=== PATIENT | male | born 1970 | race African-American/Black ===

== ENCOUNTER 2017-05-06 18:50 | Emergency (ER) | payer BC, MEDICARE ==
[~2017-05-06] VITALS: Wt 77.1 kg
[~2017-05-06 18:50] MED LIST: ACULAR 0.5%3 ML OPH; ANUSOL-HC25 MG RC; B121000 MCG/1 IM; MOTRIN800 MG PO; NKHM; TOBREX OPHTH S2.5 ML OPH; VANCOMYCIN HCL250 MG PO
[2017-05-06 19:08] VITALS: BP 143/86
[2017-05-06 19:58] LABS: BASO % 0.7 % (0.0-1.0); EOS # 0.1 10*3/uL (0.0-0.4); EOS % 2.4 % (1.0-4.0); HEMATOCRIT 38.1 % (42.0-52.0); HEMOGLOBIN 12.3 g/dl (14.0-18.0); LYMPH # 1.6 10*3/uL (1.3-4.4); LYMPH % 36.4 % (27.0-41.0); MEAN CELL VOLUME 85.2 fl (80.0-94.0); MEAN CORPUSCULAR HGB 27.5 pg (27.0-31.0); MEAN CORPUSCULAR HGB CONC 32.3 g/dl (33.0-37.0); MEAN PLATELET VOLUME 9.9 fl (9.6-12.3); MONO # 0.3 10*3/uL (0.1-1.0); MONO % 7.6 % (3.0-9.0); NEUT # 2.4 10*3/uL (2.3-7.9); NEUT % 52.2 % (47.0-73.0); PLATELET COUNT AUTOMATED 166 10*3/uL (130-400); RED BLOOD COUNT 4.47 10*6/uL (4.50-5.90); RED CELL DISTRI WIDTH 12.6 % (0-14.5); WHITE BLOOD COUNT 4.5 10*3/uL (4.8-10.8)
[2017-05-06 20:14] LABS: ACT PARTIAL THROMBO TIME 22.9 SECONDS (20.8-31.5); ALBUMIN 3.4 gm/dl (3.1-4.5); ALKALINE PHOSPHATASE 61 U/L (45-117); BUN 8 mg/dl (7-24); CHLORIDE 104 mmol/L (98-107); CREATININE 0.82 mg/dL (0.70-1.30); POTASSIUM 3.8 mmol/L (3.5-5.1); SGOT/AST 17 IU/L (3-35); SGPT/ALT 14 U/L (12-78); SODIUM 141 mmol/L (136-145); TOTAL PROTEIN 6.9 gm/dL (6.4-8.2)
[2017-05-06 20:15] LABS: TROPONIN I < 0.015 ng/ml (<0.045)
== END 2017-05-06 21:56 | disposition home or self-care (01) ==
LOC: ED 18:50
PROVIDERS: Student in an Organized Health Care Education/Training Program
DX: K64.9 Unspecified hemorrhoids (principal); E78.5 Hyperlipidemia, unspecified

== ENCOUNTER → 2017-06-05 | Outpatient (CLI) | payer BC, MEDICARE | END | disposition home or self-care (01) | LOC: RESCLI 02:22 | DX: Z12.11 Encounter for screening for malignant neoplasm of colon (principal); H61.22 Impacted cerumen, left ear; R53.83 Other fatigue; F79 Unspecified intellectual disabilities; M62.81 Muscle weakness (generalized) ==

== ENCOUNTER → 2020-04-18 | Outpatient (CLI) | payer OTHER ==
[2020-04-18 12:51] LABS: THYROXINE (T4) TOTAL 10.6 ug/dl (4.5-12.1)
[2020-04-18 12:56] LABS: THYROID STIM HORMONE (HS) 1.53 uIU/ml (0.358-4.75)
[2020-04-18 13:24] LABS: VITAMIN D, 25-HYDROXY 24.7 ng/mL (30-100)
== END | disposition home or self-care (01) ==
LOC: LAB 11:52
PROVIDERS: ATTEND Family Medicine
DX: E78.00 Pure hypercholesterolemia, unspecified (principal); R53.83 Other fatigue; R25.1 Tremor, unspecified; E55.9 Vitamin D deficiency, unspecified

== ENCOUNTER 2020-05-29 11:59 | Emergency (ER) | payer OTHER ==
[~2020-05-29] VITALS: Wt 72.6 kg
[2020-05-29 12:06] VITALS: BP 141/60
[2020-05-29] MEDS ORDERED: DEBROX15 ML OT (13:55)
== END 2020-05-29 14:30 | disposition home or self-care (01) ==
LOC: ED 11:59
DX: S93.401A Sprain of unspecified ligament of right ankle, initial encounter (principal); H61.23 Impacted cerumen, bilateral; E78.5 Hyperlipidemia, unspecified; Z98.890 Other specified postprocedural states; W00.2XXA Other fall from one level to another due to ice and snow, initial encounter; Y93.89 Activity, other specified; Y92.89 Other specified places as the place of occurrence of the external cause; Y99.8 Other external cause status

== ENCOUNTER → 2020-06-15 | Outpatient (CLI) | payer OTHER ==
[~2020-06-15] MED LIST changes: +DEBROX15 ML OT
== END | disposition home or self-care (01) ==
LOC: MRI 06-10 13:00 → LAB 10:11
PROVIDERS: ATTEND Family Medicine
DX: S99.911A Unspecified injury of right ankle, initial encounter (principal); M25.571 Pain in right ankle and joints of right foot; X58.XXXA Exposure to other specified factors, initial encounter; Y93.89 Activity, other specified; Y92.89 Other specified places as the place of occurrence of the external cause; Y99.8 Other external cause status

== ENCOUNTER 2020-10-07 00:32 | Emergency (ER) | payer OTHER ==
[~2020-10-07] VITALS: Ht 152.4 cm; Wt 72.6 kg
[~2020-10-07 00:32] MED LIST changes: -ZOFRAN4 MG PO
[2020-10-07 00:43] VITALS: BP 113/76
[2020-10-07 01:07] LABS: BASO % 0.5 % (0.0-1.0); EOS % 0.6 % (1.0-4.0); HEMATOCRIT 42.4 % (42.0-52.0); LYMPH # 1.3 10*3/uL (1.3-4.4); LYMPH % 19.4 % (27.0-41.0); MEAN CORPUSCULAR HGB CONC 31.8 g/dl (33.0-37.0); MEAN PLATELET VOLUME 11.5 fl (9.6-12.3); MONO # 0.5 10*3/uL (0.1-1.0); MONO % 7.2 % (3.0-9.0); NEUT # 4.7 10*3/uL (2.3-7.9); NEUT % 72.1 % (47.0-73.0); PLATELET COUNT AUTOMATED 125 10*3/uL (130-400); RED BLOOD COUNT 4.82 10*6/uL (4.50-5.90); RED CELL DISTRI WIDTH 12.7 % (0-14.5); WHITE BLOOD COUNT 6.6 10*3/uL (4.8-10.8)
[2020-10-07 01:21] LABS: LIPASE 75 U/L (73-393)
[2020-10-07 01:24] LABS: ALBUMIN 3.7 gm/dl (3.1-4.5); ALKALINE PHOSPHATASE 55 U/L (45-117); BUN 12 mg/dl (7-24); CHLORIDE 109 mmol/L (98-107); CREATININE 0.84 mg/dL (0.70-1.30); POTASSIUM 3.5 mmol/L (3.5-5.1); SGOT/AST 11 IU/L (3-35); SGPT/ALT 8 U/L (12-78); SODIUM 137 mmol/L (136-145); TOTAL PROTEIN 6.9 gm/dL (6.4-8.2)
[2020-10-07] MEDS ORDERED: ZOFRAN4 MG PO (03:22)
== END 2020-10-07 04:16 | disposition home or self-care (01) ==
LOC: ED 00:32
PROVIDERS: Internal Medicine
DX: K52.9 Noninfective gastroenteritis and colitis, unspecified (principal); R11.2 Nausea with vomiting, unspecified; Z79.899 Other long term (current) drug therapy; Z98.890 Other specified postprocedural states

== ENCOUNTER → 2020-10-07 | Emergency (ER) | payer OTHER ==
[~2020-10-07] VITALS: Ht 165.1 cm; Wt 72.6 kg
[~2020-10-07] MED LIST changes: +ZOFRAN4 MG PO
[2020-10-07 00:21] VITALS: BP 113/76
== END ==
LOC: ED
DX: R11.2 Nausea with vomiting, unspecified (principal)

== ENCOUNTER 2020-12-02 13:57 | Emergency (ER) | payer OTHER ==
[~2020-12-02] VITALS: Ht 162.5 cm; Wt 68.0 kg
[~2020-12-02 13:57] MED LIST changes: +ZOFRAN4 MG PO
[2020-12-02 14:12] VITALS: BP 122/68
== END 2020-12-02 17:31 | disposition home or self-care (01) ==
LOC: ED 13:57
DX: U07.1 COVID-19 (principal)

== ENCOUNTER 2020-12-03 13:57 | Emergency (ER) | payer OTHER ==
[~2020-12-03] VITALS: Ht 162.5 cm; Wt 72.6 kg
[2020-12-03 14:58] LABS: HEMATOCRIT 42.6 % (42.0-52.0); MEAN CELL VOLUME 86.1 fl (80.0-94.0); MEAN CORPUSCULAR HGB 27.7 pg (27.0-31.0); MEAN CORPUSCULAR HGB CONC 32.2 g/dl (33.0-37.0); MEAN PLATELET VOLUME 11.6 fl (9.6-12.3); PLATELET COUNT AUTOMATED 92 10*3/uL (130-400); RED BLOOD COUNT 4.95 10*6/uL (4.50-5.90); RED CELL DISTRI WIDTH 12.5 % (0-14.5); WHITE BLOOD COUNT 2.1 10*3/uL (4.8-10.8)
[2020-12-03 15:08] LABS: BUN 10 mg/dl (7-24); CHLORIDE 106 mmol/L (98-107); CREATININE 0.75 mg/dL (0.70-1.30); POTASSIUM 4.1 mmol/L (3.5-5.1); SODIUM 137 mmol/L (136-145)
[2020-12-03 15:11] LABS: CPK 101 U/L (39-308)
[2020-12-03 15:20] LABS: TOTAL CELLS COUNTED 50 #CELLS
[2020-12-03 15:21] LABS: BURR CELLS MODERATE; PLATELET SUFFICIENCY LOW (NORMAL)
== END 2020-12-03 16:16 | disposition home or self-care (01) ==
LOC: ED 13:57
PROVIDERS: Emergency Medicine
DX: U07.1 COVID-19 (principal); J12.82 Pneumonia due to coronavirus disease 2019

== ENCOUNTER 2020-12-13 11:54 | Emergency (ER) | payer OTHER ==
[~2020-12-13] VITALS: Wt 68.0 kg
[2020-12-13 12:00] VITALS: BP 128/70
== END 2020-12-13 15:44 | disposition left against medical advice (07) ==
LOC: ED 11:54
DX: R05 Cough (principal); Z53.21 Procedure and treatment not carried out due to patient leaving prior to being seen by health care provider

== ENCOUNTER → 2020-12-28 | Outpatient (CLI) | payer OTHER ==
[2020-12-28 09:33] LABS: HEMATOCRIT 38.3 % (42.0-52.0); MEAN CELL VOLUME 86.8 fl (80.0-94.0); MEAN CORPUSCULAR HGB 27.7 pg (27.0-31.0); MEAN CORPUSCULAR HGB CONC 31.9 g/dl (33.0-37.0); MEAN PLATELET VOLUME 10.2 fl (9.6-12.3); RED BLOOD COUNT 4.41 10*6/uL (4.50-5.90); RED CELL DISTRI WIDTH 13.1 % (0-14.5); WHITE BLOOD COUNT 3.7 10*3/uL (4.8-10.8)
[2020-12-28 09:51] LABS: BUN 7 mg/dl (7-24); CHLORIDE 107 mmol/L (98-107); POTASSIUM 4.1 mmol/L (3.5-5.1); SODIUM 139 mmol/L (136-145)
[2020-12-28 09:54] LABS: ALKALINE PHOSPHATASE 65 U/L (45-117); CREATININE 0.79 mg/dL (0.70-1.30); SGOT/AST 11 IU/L (3-35); SGPT/ALT 9 U/L (12-78); TOTAL PROTEIN 6.6 gm/dL (6.4-8.2)
== END | disposition home or self-care (01) ==
LOC: LAB 09:09
PROVIDERS: ATTEND Family Medicine
DX: U07.1 COVID-19 (principal); J18.9 Pneumonia, unspecified organism; R53.83 Other fatigue; R05 Cough

== ENCOUNTER → 2021-03-09 | Outpatient (CLI) | payer OTHER | END | disposition home or self-care (01) | LOC: US 02-24 09:00 | PROVIDERS: ATTEND Nurse Practitioner Primary Care | DX: M79.89 Other specified soft tissue disorders (principal) ==

== ENCOUNTER → 2021-05-01 | Outpatient (CLI) | payer OTHER | END | disposition home or self-care (01) | LOC: US 10:43 | PROVIDERS: ATTEND Podiatrist | DX: R60.0 Localized edema (principal) ==

== ENCOUNTER 2021-05-25 12:58 | Emergency (ER) | payer OTHER ==
[2021-05-25 13:13] VITALS: BP 130/58
[2021-05-25 14:19] LABS: BILIRUBIN Negative (Negative); BLOOD Negative (Negative); CLARITY Clear (Clear); COLOR Yellow (Yellow); GLUCOSE Negative (Negative); KETONE Negative (Negative); LEUKO ESTERASE Negative (Negative); NITRITE Negative (Negative); SPECIFIC GRAVITY 1.015 (1.001-1.030)
[2021-05-25 14:26] LABS: BASO % 0.6 % (0.0-1.0); EOS # 0.1 10*3/uL (0.0-0.4); EOS % 2.9 % (1.0-4.0); HEMATOCRIT 39.8 % (42.0-52.0); LYMPH # 1.3 10*3/uL (1.3-4.4); LYMPH % 36.8 % (27.0-41.0); MEAN CELL VOLUME 86.7 fl (80.0-94.0); MEAN CORPUSCULAR HGB 28.3 pg (27.0-31.0); MEAN CORPUSCULAR HGB CONC 32.7 g/dl (33.0-37.0); MEAN PLATELET VOLUME 10.4 fl (9.6-12.3); MONO # 0.3 10*3/uL (0.1-1.0); MONO % 9.2 % (3.0-9.0); NEUT # 1.8 10*3/uL (2.3-7.9); NEUT % 50.2 % (47.0-73.0); PLATELET COUNT AUTOMATED 156 10*3/uL (130-400); RED BLOOD COUNT 4.59 10*6/uL (4.50-5.90); RED CELL DISTRI WIDTH 13.2 % (0-14.5); WHITE BLOOD COUNT 3.5 10*3/uL (4.8-10.8)
[2021-05-25 14:32] LABS: BACTERIA 1+; MUCOUS 3+
[2021-05-25 14:45] LABS: ALBUMIN 3.3 gm/dl (3.1-4.5); ALKALINE PHOSPHATASE 65 U/L (45-117); BUN 10 mg/dl (7-24); CHLORIDE 106 mmol/L (98-107); CREATININE 0.82 mg/dL (0.70-1.30); LIPASE 45 U/L (73-393); POTASSIUM 4.2 mmol/L (3.5-5.1); SGOT/AST 15 IU/L (3-35); SGPT/ALT 9 U/L (12-78); SODIUM 139 mmol/L (136-145); TOTAL PROTEIN 6.7 gm/dL (6.4-8.2)
[2021-05-25] MEDS ORDERED: IBUPROFEN600 MG PO (18:05)
== END 2021-05-25 18:40 | disposition home or self-care (01) ==
LOC: ED 12:58
PROVIDERS: Student in an Organized Health Care Education/Training Program
DX: R10.9 Unspecified abdominal pain (principal); R60.0 Localized edema; R11.0 Nausea; Z98.890 Other specified postprocedural states

== ENCOUNTER → 2021-08-06 | Outpatient (CLI) | payer OTHER ==
[~2021-08-06] MED LIST changes: +IBUPROFEN600 MG PO
[2021-08-06 09:41] LABS: BASO # 0.1 10*3/uL (0.0-0.1); BASO % 1.3 % (0.0-1.0); EOS # 0.1 10*3/uL (0.0-0.4); EOS % 2.2 % (1.0-4.0); HEMATOCRIT 36.4 % (42.0-52.0); LYMPH # 1.6 10*3/uL (1.3-4.4); LYMPH % 44.1 % (27.0-41.0); MEAN CELL VOLUME 87.9 fl (80.0-94.0); MEAN PLATELET VOLUME 11.3 fl (9.6-12.3); MONO # 0.3 10*3/uL (0.1-1.0); NEUT # 1.7 10*3/uL (2.3-7.9); NEUT % 45.1 % (47.0-73.0); PLATELET COUNT AUTOMATED 141 10*3/uL (130-400); RED BLOOD COUNT 4.14 10*6/uL (4.50-5.90); RED CELL DISTRI WIDTH 12.7 % (0-14.5); WHITE BLOOD COUNT 3.7 10*3/uL (4.8-10.8)
[2021-08-06 09:59] LABS: ALKALINE PHOSPHATASE 57 U/L (45-117); BUN 12 mg/dl (7-24); CHLORIDE 111 mmol/L (98-107); CREATININE 0.84 mg/dL (0.70-1.30); SGOT/AST 13 IU/L (3-35); SODIUM 142 mmol/L (136-145); TOTAL PROTEIN 6.6 gm/dL (6.4-8.2)
[2021-08-06 10:01] LABS: SGPT/ALT 8 U/L (12-78)
== END | disposition home or self-care (01) ==
LOC: LAB 08:53
PROVIDERS: ATTEND Surgery
DX: R00.0 Tachycardia, unspecified (principal); K40.30 Unilateral inguinal hernia, with obstruction, without gangrene, not specified as recurrent; M41.84 Other forms of scoliosis, thoracic region; Z20.822 Contact with and (suspected) exposure to COVID-19

== ENCOUNTER → 2022-01-10 | Outpatient (CLI) | payer OTHER | END | disposition home or self-care (01) | LOC: RAD 17:57 | PROVIDERS: ATTEND Physician Assistant | DX: M85.861 Other specified disorders of bone density and structure, right lower leg (principal); M25.761 Osteophyte, right knee ==

== ENCOUNTER → 2022-03-28 | Outpatient (CLI) | payer OTHER | END | disposition home or self-care (01) | LOC: RAD 12:49 | PROVIDERS: ATTEND Physician Assistant | DX: M16.11 Unilateral primary osteoarthritis, right hip (principal); M47.816 Spondylosis without myelopathy or radiculopathy, lumbar region; M25.551 Pain in right hip; M54.50 Low back pain, unspecified ==

== ENCOUNTER 2024-02-03 21:09 | Emergency (ER) | payer OTHER ==
[~2024-02-03] VITALS: Ht 167.6 cm; Wt 72.6 kg
[2024-02-03 21:09] VITALS: BP 154/88
[~2024-02-03 21:09] MED LIST changes: +ACETAMINOPHEN325 M2 PO; +AQUAPHOR WITH N50 GM T; +ATORVASTATIN CA20 M1 PO; +BUMETANIDE1 MG PO; +BUMETANIDE2 MG PO; +CELEXA10 MG PO; +HYDROXYZINE PAM50 MG PO; +LASIX20 MG PO; +LASIX40 MG PO; +METOPROLOL SUCC25 M2 PO; +MIRTAZAPINE15 M2 PO; +Ondansetron4 MG SL; +POTASSIUM CHLO20 ME3 PO; +VITAMIN B-12100 MCG PO; +VITAMIN B1250 MCG PO; +VITAMIN D3125 MC1 PO; +Zaroxolyn,Diul2.5 MG PO
[2024-02-03] MEDS ORDERED: ACETAMINOPHEN 325 MG TAB PO ONE (23:05)
== END 2024-02-03 23:57 ==
LOC: ED 21:09
DX: S00.83XA Contusion of other part of head, initial encounter (principal); M54.2 Cervicalgia; I50.9 Heart failure, unspecified; Z98.890 Other specified postprocedural states; W01.10XA Fall on same level from slipping, tripping and stumbling with subsequent striking against unspecified object, initial encounter; Y93.89 Activity, other specified; Y92.129 Unspecified place in nursing home as the place of occurrence of the external cause; Y99.8 Other external cause status